=== PATIENT | female | born 1950 | race African-American/Black ===

== ENCOUNTER 2016-08-23 08:43 | Inpatient (IN) ==
[2016-08-23] MEDS ORDERED: DUONEB (A & A) INH ONE (09:17)
[2016-08-23] MEDS ORDERED: SOLU-MEDROL IV ONE (09:18)
[2016-08-23 09:39] LABS: MANUAL DIFF NEEDED? NO
[2016-08-23 09:43] LABS: BASO% 0.3 % (0.0-0.8); EOS# 0.02 X1000 (0.0-0.7); EOS% 0.3 % (0.0-10.0); HEMATOCRIT 35.7 % (37.0-47.0); HEMOGLOBIN 12.1 g/dL (12.0-16.0); LYMPH# 0.46 X1000 (1.2-3.4); LYMPH% 7.1 % (20.5-51.1); MCH 28.2 PG (27-31); MCHC 33.9 g/dL (33-37); MCV 83.2 FL (81-99); MONO# 0.57 X1000 (0.11-0.59); MONO% 8.9 % (1.7-9.3); MPV 10.5 FL (7.4-10.4); NEUT% 83.4 % (42.2-75.2); PLT 195 X1000 (130-400); RBC 4.29 XMIL (4.2-5.4)
[2016-08-23 09:50] LABS: INR 0.96; PROTIME 10.1 Seconds (9.2-11.7); PTT 28.2 Seconds (22.0-36.0)
[2016-08-23 10:00] LABS: AGAP 11; ALBUMIN 4.3 g/dL (3.5-5.0); ALKALINE PHOSPHATASE 83 U/L (32-104); BUN 12 mg/dL (8-22); CALCIUM 8.9 mg/dL (8.8-10.2); CHLORIDE 105 mmol/L (98-107); CK PROFILE 98 U/L (24-173); COSMO 286; GOT 17 U/L (10-30); GPT 11 U/L (10-36); MAGNESIUM 2.1 mg/dL (1.5-2.7); POTASSIUM 4.1 mmol/L (3.5-5.1); SODIUM 143 mmol/L (136-145); TCO2 27 mmol/L (25-35); TOTAL BILIRUBIN 0.15 mg/dL (0.20-1.00); TOTAL PROTEIN 6.4 g/dL (6.3-8.3)
--- NOTE | 2016-08-23 10:31 | Diag Imaging Result Document ---
PROCEDURE NAME: CHEST-PORTABLE - 08/23/2016 PORTABLE CHEST: FINDINGS: There is COPD particularly in the right upper lobe. There is a prominent left nipple shadow. The heart size and pulmonary vascularity are within normal limits and otherwise there has been no significant change in the appearance of the chest since 05/23/2015. IMPRESSION: COPD.
[2016-08-23] MEDS ORDERED: ROCEPHIN 1 GM/NS 1 GM/50 ML IVPB IV ONE (10:51)
[2016-08-23] MEDS ORDERED: ZITHROMAX 500 MG/NS 500 MG/250 ML IVPB IV ONE (10:52)
--- NOTE | 2016-08-23 11:05 | EKG Report ---
Test Performed on : 08/23/2016 08:57:03 AM Test Reason : Chest Pain Blood Pressure : / mmHG Vent. Rate : 082 BPM Atrial Rate : 082 BPM P-R Int : 144 ms QRS Dur : 082 ms QT Int : 368 ms P-R-T Axes : 037 046 031 degrees QTc Int : 429 ms Undetermined rhythm Nonspecific ST and T wave abnormality Abnormal ECG When compared with ECG of 30-MAY-2015 06:00, Current undetermined rhythm precludes rhythm comparison, needs review T wave inversion now evident in Anterior leads Unconfirmed Result
--- NOTE | 2016-08-23 11:16 | PROVIDER DOCUMENTATION ---
This chart was entered by Sebastien Purvis Scribe, acting as scribe for Tomas Muñoz MD. HPI-Respiratory General - General Chief Complaint: Shortness of Breath Stated Complaint: SOB Time Seen by Provider: 08/23/16 09:06 Source: patient Allergies/Adverse Reactions: Patient Allergies Allergy/AdvReac Type Severity Reaction Status Date / Time Penicillins Allergy Severe ANAPHYLAXIS Verified 05/23/15 16:45 Home Medications: Home Medication List Medication Instructions Recorded Confirmed Last Taken Type Albuterol Sulfate [Proair Hfa] 8.5 gm IH PRN PRN 06/19/12 08/23/16 08/22/16 07: 00 History 8.5 GM Acetaminophen [Tylenol] 650 mg PO Q6H PRN PRN #0 tablet 06/23/12 08/23/16 07:00 Rx 650 MG Albuterol [Albuterol Neb] 2.5 mg INH [id number] #0 neb 06/23/12 08/23/16 08/22/16 07:00 Rx 2.5 MG Bupropion S.r. [Wellbutrin Sr] 100 mg PO QAM 05/23/15 08/23/16 08/22/16 07:00 History 100 MG Fluticasone/Vilanterol [Breo 1 each IH QAM 05/23/15 08/23/16 08/22/16 07:00 History Ellipta 200-25 Mcg INH] 1 EACH Prednisone 10 mg PO QAM 05/23/15 08/23/16 08/22/16 07:00 History 10 MG Diltiazem C.d. [Cardizem Cd] 180 mg PO DAILY #0 capsule 05/30/15 08/23/16 07:00 Rx 180 MG Losartan [Cozaar] 100 mg PO DAILY #0 tablet 05/30/15 08/23/16 08/22/16 07:00 Rx 100 MG Tiotropium [place] Inhaler 1 puff INH RTDAILY #0 inhaler 05/30/15 08/23/1608/22 07:00 Rx [Spiriva] 1 PUFF - History of Present Illness-Resp Nature of Presenting Problem: patient is a 66 y/o F that presents to the ER with three days of progressive shortness of breath. patient reports for one week having sinus congestion and drainage. She denies fever/chills, edema, or chest pain. patient reports shortness of breath is now worse with exertion, laying flat, and coughing. History of COPD and still smokes daily Quality of Pain: reports: tightness Severity in ED: reports: moderate Onset/Duration: reports: gradual, 1 week ago Timing: reports: still present, getting worse (x 3 days) Context: denies: recent URI, out of meds Cough Quality/Degree: reports: moderate, productive cough Episode Frequency: chronic episodes Current Respiratory Medication Therapy: Initiated see nurses note Modifying Factors: worse with: exertion, lying down Associated Symptoms: reports: cough, nasal congestion, nasal drainage, shortness of breath, short of breath. denies: flu-like symptoms Similar Symptoms Previously?: Yes Recently seen or treated by another doctor?: No Review of Systems - Adult - REVIEW OF SYSTEMS - ADULT Constitutional: denies: chills, fever Eyes: reports: no symptoms reported Ears, Nose, Mouth & Throat: reports: sinus problem. denies: ear pain, throat pain, throat swelling Cardiovascular: reports: orthopnea. denies: chest pain, edema, palpitations, syncope Respiratory: reports: cough, dyspnea on exertion, shortness of breath, wheezing Gastrointestinal: denies: abdominal pain, nausea, vomiting Genitourinary: reports: no symptoms reported Musculoskeletal: denies: bone pain, back pain, joint pain, neck pain Integumentary: reports: no symptoms reported Neurological: reports: no symptoms reported Psychiatric: reports: no symptoms reported Endocrine: reports: no symptoms reported Hematologic/Lymphatic: reports: no symptoms reported Allergic/Immunologic: reports: no symptoms reported All Other Systems: Reviewed and Negative Past History - Adult - PAST MEDICAL HISTORY-ADULT Review of Records: reports: Old Records Reviewed, Nursing Assessment Review, Medications Reviewed Cardiovascular: reports: HTN Respiratory: reports: asthma, COPD - PRIOR SURGERIES/PROCEDURES Surgical/Procedure History: reports: hysterectomy, breast - IMMUNIZATION STATUS Childhood Immunizations: See Nurse Assessment Flu Vaccine: See Nurse Assessment - FAMILY HISTORY Family History: reviewed, not pertinent - SOCIAL HISTORY Smoking: cigarettes, less than 1 pack/day Living Situation: family Physical Exam-General - PHYSICAL EXAM-ADULT Initial Vital Signs Reviewed: Yes - CONSTITUTIONAL General Appearance: alert, mild distress - EYES Eyes: PERRL/EOMI, pink conjunctivae - HEAD, EARS, NOSE, MOUTH & THROAT HENMT: normocephalic/atraumatic, moist mucous membranes, normal ENT inspection - NECK Neck: full range of motion, normal inspection - RESPIRATORY Respiratory: no accessory muscle use, respiratory distress (mild), decreased breath sounds (at bases bilaterally), rhonchi (upper lobes), wheezing (upper lobes) - CARDIOVASCULAR Cardiovascular: regular rate, rhythm, no gallop, no murmur - GASTROINTESTINAL (ABDOMEN) Abdominal Exam: normal bowel sounds, non tender, soft - MUSCULOSKELETAL Extremity: normal range of motion, normal inspection - SKIN Integumentary: normal color, warm/dry - NEUROLOGIC Neurologic: grossly normal, no motor/sensory deficits - PSYCHIATRIC Psych/Mental Status: normal mood/affect, normal thought content, normal thought process, oriented x 3 Progress - PLAN OF CARE/RESULTS Progress/Plan/Lab Results: Vital Signs - 8 hr 08/23/16 08:48 08/23/16 10:07 08/23/16 10:43 Temperature 98.4 F Pulse Rate 82 82 75 Respiratory Rate 22 22 23 Blood Pressure 159/66 150/79 O2 Sat by Pulse Oximetry 88 L 95 98 08/23/16 10:44 Temperature 98.7 F Pulse Rate Respiratory Rate Blood Pressure O2 Sat by Pulse Oximetry Laboratory Results - last 24 hr 08/23/16 08/23/16 08/23/16 09:15 09:15 09:15 WBC 6.44 RBC 4.29 Hgb 12.1 Hct 35.7 L MCV 83.2 MCH 28.2 MCHC 33.9 RDW Std Deviation 14.6 H Plt Count 195 MPV 10.5 H Immature Gran % (Auto) 0.0 Neut % (Auto) 83.4 H Lymph % (Auto) 7.1 L [place] % (Auto) 8.9 Eos % (Auto) 0.3 Baso % (Auto) 0.3 Immature Gran # (Auto) 0.00 Neut # (Auto) 5.37 Lymph # (Auto) 0.46 L [place] # (Auto) 0.57 Eos # (Auto) 0.02 Baso # (Auto) 0.02 PT INR PTT (Actin FS) Sodium 143 Potassium 4.1 Chloride 105 Carbon Dioxide 27 Anion Gap 11 BUN 12 Creatinine 0.8 Estimated GFR/1.73 m2 > 60 BUN/Creatinine Ratio 15 Glucose 127 H Calculated Osmolality 286 Calcium 8.9 Magnesium 2.1 Total Bilirubin 0.15 L AST 17 ALT 11 Alkaline Phosphatase 83 Creatine Kinase 98 Troponin T Cjn-T-Rjzckavgkya Pept 112 Total Protein 6.4 Albumin 4.3 Globulin 2.1 Albumin/Globulin Ratio 2.0 Plasma Lactate 08/23/16 08/23/16 08/23/16 09:15 09:15 09:15 WBC RBC Hgb Hct MCV MCH MCHC RDW Std Deviation Plt Count MPV Immature Gran % (Auto) Neut % (Auto) Lymph % (Auto) [place] % (Auto) Eos % (Auto) Baso % (Auto) Immature Gran # (Auto) Neut # (Auto) Lymph # (Auto) [place] # (Auto) Eos # (Auto) Baso # (Auto) PT 10.1 INR 0.96 PTT (Actin FS) 28.2 Sodium Potassium Chloride Carbon Dioxide Anion Gap BUN Creatinine Estimated GFR/1.73 m2 BUN/Creatinine Ratio Glucose Calculated Osmolality Calcium Magnesium Total Bilirubin AST ALT Alkaline Phosphatase Creatine Kinase Troponin T < 0.010 Pln-T-Qofqeacjmnx Pept Total Protein Albumin Globulin Albumin/Globulin Ratio Plasma Lactate 0.6 Orders Category Date Time Status Cardiac Monitoring DIRECTED Care 08/23/16 09:15 Active Oxygen Therapy- ED Nursing DIRECTED Care 08/23/16 09:15 Active Saline Loc NOW Care 08/23/16 09:15 Active CHEST-PORTABLE [RAD] Stat Exams 08/23/16 09:16 Draft ABG [RESP] Routine Lab 08/23/16 09:59 Ordered BLOOD CULTURE [BLDCUL] Stat Lab 08/23/16 09:25 Results CBC WITH ELECTRONIC DIFF [HEME] Stat Lab 08/23/16 09:15 Completed CK PROFILE [SP CHEM] Stat Lab 08/23/16 09:15 Completed COMPREHENSIVE METABOLIC PANEL [CHEM] Stat Lab 08/23/16 09:15 Completed LACTATE, PLASMA [CHEM] Stat Lab 08/23/16 09:15 Completed MAGNESIUM [CHEM] Stat Lab 08/23/16 09:15 Completed PRO B-NATRIURETIC PEPTIDE Stat Lab 08/23/16 09:15 Completed PROTIME WITH INR [COAG] Stat Lab 08/23/16 09:15 Completed PTT [COAG] Stat Lab 08/23/16 09:15 Completed TROPONIN T Stat Lab 08/23/16 09:15 Completed Albuterol 2.5MG/Ipratrop 0.5MG [Duoneb (A & A)] Med 08/23/16 09:17 Discontinued 3 ml INH NOW ONE Azithromycin 500 mg/Ns [Zithromax 500 mg/Ns] Med 08/23/16 10:52 Active 500 mg in 250 ml IV NOW CefTRIAXONE 1 GM/NS [Rocephin 1 gm/Ns] Med 08/23/16 10:51 Active 1 gm in 50 ml IV NOW Methylprednisolone Sod Succ [Solu-Medrol] Med 08/23/16 09:18 Discontinued 125 mg IV NOW ONE Aerosol Treatments Routine Oth 08/23/16 09:17 Active Aerosol Treatments Stat Oth 08/23/16 09:17 Active EKG [EKG] Stat Ther 08/23/16 08:53 Ordered EKG [EKG] Stat Ther 08/23/16 09:15 Ordered 1050-hospitalist paged for admission Result Diagrams: 08/23/16 09:15 08/23/16 09:15 - REASSESSMENT Reassessment #1 Time Reassessed: 10:45 Status: improving Reassessment Comment: feeling better, but still wheezing - EKG 1 Time of EKG reading by physician:: 09:01 EKG Read and Signed by:: Tomas Muñoz EKG Interpretation (*Must complete 3 of following elements*): Abnormal Rate: 82 Rhythm: NSR [place]: normal QRS: normal ND Interval: normal ST Wave: non-specific ST changes - XRAY 1 XRAY Study: Chest Impression: Abnormal XRAY Interpretation: COPD - CONSULTS/PCP/HOSPITALIST Notification #1 *Consult/PCP/Hospitalist*: Time Discussed: 11:02 Reason/Comments: copd exacerbation Consult Disposition: Will see in ED, Admit Departure - Departure Time of Disposition Decision: 11:03 DIAGNOSIS: COPD exacerbation Dyspnea Qualifiers: Dyspnea type: shortness of breath Qualified Code(s): R06.02 - Shortness of breath Disposition: ADMITTED INPATIENT 09 Certified Medical Emergency: Emergent Condition: Stable Referrals and Follow-Ups: Davion Rg DO [Primary Care Provider] - - Critical Care Note Total Time (mins): 35 Critical Care Statement: This patient required my direct personal management to treat or rule out processes, the absence of which, could potentiallly result in sudden, clinically significant life or limb threatening deterioration. This chart was documented by the indicated scribe, (Sebastien Purvis, Scribe) and accurately reflects the services I performed and decisions made by me, Tomas Muñoz MD, as attested by the provider's signature.
[2016-08-23 11:40] LABS: ALLEN TEST YES; BE 2.3 mmoll (-3.0-3.0); BLOOD TYPE ARTERIAL; DRAW SITE R RADIAL; METHB 1.6 % (0.0-1.5); O2(CT) 14.6 mL/dL (15.0-23.0); PCO2(98.6) 49 mmHg (35-45); PO2(98.6) 59 mmHg (60-100); SAMPLE BLOOD; SAO2 94.2 % (95.0-100.0); THB 11.5 g/dL (11.5-17.4); pH(98.6) 7.37 (7.35-7.45)
[2016-08-23 11:41] LABS: MODALITY CANNULA
[2016-08-23] MEDS ORDERED: NS 1,000 ML IV SCH (12:14)
[2016-08-23] MEDS ORDERED: ZOFRAN IV PRN (12:14)
[2016-08-23] MEDS: ZITHROMAX 500 MG/NS 500 MG/250 ML IVPB IV SCH (12:15)
[2016-08-23] MEDS: SOLU-MEDROL IV SCH ×2 (13:54→22:16)
--- NOTE | 2016-08-23 15:04 | HISTORY AND PHYSICAL ---
PRIMARY CARE PHYSICIAN: Davion Rg DO CHIEF COMPLAIN: Two to three days of shortness of breath. HISTORY OF PRESENT ILLNESS: This is a 66-year-old, female with a history of COPD on home O2 as well as nebulizers who continues to smoke 5-6 cigarettes per day, hypertension, hyperlipidemia and mood disorder. Presented to the ED with 2-3 days of shortness of breath, subjective fever on Tuesday but no fever or chills. She states she does feel heaviness in her bilateral chest figueroa however no types of cardiac type pain. She states she normally does have dyspnea upon exertion. However it is now with very minimal or no exertion, she becomes very short of breath. She did complain of a cough. She stated today she has just started having somewhat of a productive cough with clear phlegm. In the ED, patient's chest x-ray, showed COPD and particularly in the right upper lobe. Heart size and pulmonary vascular within normal limits. CBC and CMP were unremarkable. The febrile on admission. Patient denied any cardiac type chest pain. No nausea, vomiting, diarrhea, bright or black tarry stools. No coffee-grounds emesis. No dizziness. Patient was noted to have expiratory wheezes. She was started on IV steroids as well as IV antibiotics and bronchodilators. Patient will be admitted to the medical telemetry floor. PAST MEDICAL HISTORY: 1. COPD with home O2. 2. Hypertension. 3. Hyperlipidemia. 4. Mood disorder. FAMILY HISTORY: Noncontributory. SOCIAL HISTORY: The patient does continue to smoke 5-6 cigarettes per day. Denies any alcohol or illicit drug use. Has several family members present at bedside very supportive. ALLERGIES: Penicillin which is anaphylaxis. HOME MEDICATIONS: 1. Breo Ellipta 225 mcg 1 each inhaled q.a.m. 2. Tylenol 650 mg p.o. p.r.n. 3. Albuterol 2.5 mg inhaled 4 times a day. 4. ProAir 8.5 g inhaled p.r.n. 5. Prednisone 10 mg p.o. q.a.m. 6. Wellbutrin 100 mg p.o. q.a.m. 7. Cardizem CD 180 mg p.o. daily. 8. Cozaar 100 mg p.o. daily. 9. Spiriva 1 puff inhaled RT daily. REVIEW OF SYSTEMS: Completely negative, except for those mentioned in the HPI. PHYSICAL EXAMINATION: VITAL SIGNS: Temperature is 98.7 degrees, heart rate 75, respirations 20, blood pressure is 150/79, O2 is 98% on 2 L nasal cannula. GENERAL: This is a 66-year-old, Afro-[place] female, who is sitting up in the bed in no acute distress. HEENT: Atraumatic. Normocephalic. PERRL. NECK: Supple, trachea midline. CV: No murmurs, gallops, or rubs are noted. RESPIRATORY: Bilateral expiratory wheezes. She does have marked decreased in breath sounds bilaterally. ABDOMEN: Soft, nontender, nondistended. Positive bowel sounds 4 quadrants. NEUROLOGIC: The patient is sitting up in bed. She is awake. She is alert. She is oriented. She moves all extremities. Cranial nerves 2-12 are grossly intact. EXTREMITIES: Negative for edema, 2+ pedal pulses bilaterally. LABORATORY DIAGNOSTIC DATA: White count 6, hemoglobin 12, hematocrit 35, platelet count is 193,000. Chemistry: Sodium 143, potassium 4.1, chloride 105, carbon dioxide 27, BUN 12, creatinine 0.8. Blood glucose was 127. lactate was 0.6, blood cultures are pending. Sputum culture has been ordered. ABG, pH 7.37, pCO2 49, PO2 59, bicarb 26.6, base excess 2.3 with oxyhemoglobin 90.1, O2 saturation was 94 on 2 L nasal cannula. Chest x-ray showed COPD. No change from prior in May 2015. ASSESSMENT AND PLAN: 1. Chronic obstructive pulmonary disease exacerbation. Patient is being admitted to the medical telemetry floor where she was continue on azithromycin as well as DuoNeb and IV steroids. Peak flow studies b.i.d., aggressive pulmonary toilet as well as supplemental O2. 2. Chronic compensated primary respiratory acidosis related to chronic obstructive pulmonary disease. See #1. 3. Hypertension. Continue home medications. 4. Mood disorder. Continue Wellbutrin. 5. Deep venous thrombosis prophylaxis. Patient will be put on compression hose. Further recommendations to follow physician evaluation as well as pending sputum and blood cultures. Dictated by LUPE Alvarado for Carson Power MD cc: DO Carson Torres MD
[2016-08-23] MEDS: DUONEB (A & A) INH SCH ×3 (15:32→23:05)
[2016-08-23] MEDS: TYLENOL PO PRN (16:00)
[2016-08-23] MEDS: PULMICORT INH SCH (19:20)
[2016-08-24] MEDS: DUONEB (A & A) INH SCH ×6 (03:30→23:05)
[2016-08-24] MEDS: SOLU-MEDROL IV SCH ×2 (06:51→18:29)
[2016-08-24] MEDS: PULMICORT INH SCH ×2 (07:37→19:15)
[2016-08-24] MEDS: SPIRIVA INH SCH (07:37)
[2016-08-24 07:40] LABS: AGAP 13; BUN 12 mg/dL (8-22); CALCIUM 9.2 mg/dL (8.8-10.2); CHLORIDE 105 mmol/L (98-107); COSMO 290; POTASSIUM 4.1 mmol/L (3.5-5.1); SODIUM 144 mmol/L (136-145); TCO2 26 mmol/L (25-35)
[2016-08-24 07:41] LABS: BASO% 0.1 % (0.0-0.8); HEMATOCRIT 35.3 % (37.0-47.0); HEMOGLOBIN 11.8 g/dL (12.0-16.0); IMM GRAN# 0.02 X1000 (0.0-0.04); IMM GRAN% 0.2 % (0.0-0.5); LYMPH# 0.46 X1000 (1.2-3.4); LYMPH% 5.1 % (20.5-51.1); MANUAL DIFF NEEDED? YES; MCH 28.1 PG (27-31); MCHC 33.4 g/dL (33-37); MONO# 0.32 X1000 (0.11-0.59); MONO% 3.6 % (1.7-9.3); MPV 11.1 FL (7.4-10.4); PLT 192 X1000 (130-400)
[2016-08-24 08:06] LABS: BANDS 10 % (0-1); LYMPHS 4 % (21-51); MONO 2 % (1-9)
[2016-08-24] MEDS: WELLBUTRIN SR PO SCH (09:00)
[2016-08-24] MEDS: CARDIZEM CD PO SCH (09:00)
[2016-08-24] MEDS: COZAAR PO SCH (09:00)
[2016-08-24] MEDS: DUONEB (A & A) INH PRN (09:36)
[2016-08-24] MEDS: ZITHROMAX 500 MG/NS 500 MG/250 ML IVPB IV SCH (11:50)
--- NOTE | 2016-08-24 13:54 | PROGRESS NOTE ---
DATE: 08/24/2016 SUBJECTIVE: Patient reported to still feeling short of breath. A little bit better in comparing with yesterday but is still wheezing. OBJECTIVE: Vital signs: Temp 98.8 degrees, heart rate 93, respiratory rate 28, blood pressure 154/67, O2 saturation 99% on 3 L nasal cannula. General Examination: This is a chronically ill- looking and frail, 66-year-old female lying in bed, in no acute distress. HEENT: Head is normocephalic, atraumatic. Anicteric sclerae and pale conjunctivae. Mucous membranes moist. Neck: Supple. No JVD noted. No carotid bruits. No lymphadenopathy. No thyromegaly. Cardiovascular: S1, S2 heard. Tachycardic. No murmurs, gallops, or rubs. Respiratory: Decreased breath sounds globally with marked wheezing in both pulmonary fischer. Patient is using some accessory muscles. Abdomen: Soft. Nontender to palpation. Bowel sounds present. No organomegaly. Extremities: No clubbing, cyanosis, or edema. Peripheral pulses present in both legs. Neurological: Patient is alert and oriented x3. Able to move 4 extremities. Cranial nerves 2 through 12 grossly normal. LABORATORY DATA: CBC is okay, as well as BMP with mild elevation of glucose of 159. ASSESSMENT AND PLAN: 1. Chronic obstructive pulmonary disease exacerbation. Patient is on DuoNeb every 4 hours scheduled plus bupropion and she is not improving as we were expecting. She is on long-acting beta-blockers at home so we have requested her to bring this medication to the hospital. Overall this patient is not improving as we excepted because she is still smoking 4-6 cigarettes per day and I think that is the reason why this patient is not improving. We are going to continue with basically the same management. The patient is strongly advised to stop smoking completely. She reports that she was on home oxygen a few months ago and I think she is going to be put back on that because it has been demonstrated that is the only thing that can improve survival in COPD patients. 2. Hypertension. Blood pressure is under control. We will continue with the same management. 3. Mood disorder. We will continue with Wellbutrin. cc: Arvind Weldon MD
[2016-08-24] MEDS: TYLENOL PO PRN ×2 (14:54→20:46)
[2016-08-24] MEDS: BREO ELLIPTA 100/25 MCG INH INH SCH (19:15)
[2016-08-24] MEDS: MYCOSTATIN SUSP PO SCH (20:46)
[2016-08-25] MEDS: DUONEB (A & A) INH SCH ×6 (04:42→22:56)
[2016-08-25] MEDS: SOLU-MEDROL IV SCH ×3 (05:17→21:18)
[2016-08-25] MEDS: SPIRIVA INH SCH (07:48)
--- NOTE | 2016-08-25 08:49 | Diag Imaging Result Document ---
PROCEDURE NAME: CHEST-PORTABLE - 08/25/2016 PORTABLE UPRIGHT CHEST: COMPARISON: 08/23/2016. FINDINGS: The lungs are well expanded. The heart is not enlarged. The vessels are not distended. No pneumonia. No pleural effusions identified. Mild scoliosis. There are emphysematous changes most notable in the apices. IMPRESSION: Emphysema.
[2016-08-25] MEDS: COZAAR PO SCH (09:23)
[2016-08-25] MEDS: CARDIZEM CD PO SCH (09:23)
[2016-08-25] MEDS: MYCOSTATIN SUSP PO SCH ×4 (09:24→21:19)
[2016-08-25] MEDS: WELLBUTRIN SR PO SCH (09:25)
[2016-08-25] MEDS: MUCINEX PO PRN (09:29)
[2016-08-25] MEDS: DUONEB (A & A) INH PRN ×2 (09:47→13:55)
[2016-08-25] MEDS: BREO ELLIPTA 100/25 MCG INH INH SCH (09:48)
[2016-08-25 09:50] LABS: BASO% 0.2 % (0.0-0.8); HEMATOCRIT 38.4 % (37.0-47.0); HEMOGLOBIN 12.6 g/dL (12.0-16.0); IMM GRAN# 0.07 X1000 (0.0-0.04); IMM GRAN% 0.4 % (0.0-0.5); LYMPH# 0.49 X1000 (1.2-3.4); LYMPH% 2.5 % (20.5-51.1); MANUAL DIFF NEEDED? YES; MCH 28.1 PG (27-31); MCHC 32.8 g/dL (33-37); MCV 85.7 FL (81-99); MONO# 0.79 X1000 (0.11-0.59); NEUT% 92.9 % (42.2-75.2); PLT 257 X1000 (130-400); RBC 4.48 XMIL (4.2-5.4)
[2016-08-25 10:04] LABS: AGAP 14; ALBUMIN 4.2 g/dL (3.5-5.0); ALKALINE PHOSPHATASE 77 U/L (32-104); BUN 16 mg/dL (8-22); CALCIUM 9.6 mg/dL (8.8-10.2); CHLORIDE 101 mmol/L (98-107); COSMO 295; GOT 29 U/L (10-30); GPT 17 U/L (10-36); POTASSIUM 4.4 mmol/L (3.5-5.1); SODIUM 145 mmol/L (136-145); TCO2 30 mmol/L (25-35); TOTAL BILIRUBIN 0.15 mg/dL (0.20-1.00); TOTAL PROTEIN 7.4 g/dL (6.3-8.3)
[2016-08-25 10:42] LABS: BANDS 3 % (0-1); LYMPHS 4 % (21-51); MONO 2 % (1-9)
[2016-08-25] MEDS: ZITHROMAX 500 MG/NS 500 MG/250 ML IVPB IV SCH (12:35)
--- NOTE | 2016-08-25 16:14 | PROGRESS NOTE ---
DATE: 08/25/2016 SUBJECTIVE: Patient reports feeling a little bit better today with less shortness of breath. Sitting in the chair. Denies any chest pain, any fever or chills. OBJECTIVE: Vital Signs: Temperature 98.5 degrees, heart rate 79, respiratory rate 28, blood pressure 170/75, O2 saturation 95% on 3 L nasal cannula. GENERAL EXAMINATION: This is a chronically ill-looking and frail, 66-year-old female lying in bed, in no acute distress.HEENT: Head is normocephalic, atraumatic. Anicteric sclerae and pale conjunctivae. Mucous membranes moist. Neck: Supple. No JVD noted. No carotid bruits. No lymphadenopathy. No thyromegaly. Cardiovascular: S1, S2 heard. No murmurs, gallops, or rubs. Regular rate and rhythm. Respiratory: Decreased breath sounds globally with mild wheezing in both pulmonary fischer but definitely better in comparing with yesterday. The patient is not using any accessory muscles or having work of breathing. Abdomen: Soft, nontender to palpation. Bowel sounds present. No organomegaly. Extremities: No clubbing, cyanosis, or edema. Peripheral pulses present in both legs. Neurological: Patient alert and oriented x3. Able to move 4 extremities. Cranial nerves 2-12 grossly normal. LABORATORY DATA: White cell count 19.63, hemoglobin 12.6, hematocrit 38.4, platelets 257,000. BMP completely unremarkable. ASSESSMENT AND PLAN: 1. Chronic obstructive pulmonary disease exacerbation. Patient is on DuoNeb every 4 hours scheduled and also she is receiving Spiriva and she was started on long-acting bronchodilator medication. The patient reports feeling clinically better. At this point, we are going to continue with the same management. Patient advised again to stop smoking because she is still smoking 4-6 cigarettes per day which of course is going to impact pulmonary function. Patient already advised of the consequence of keeping smoking. The patient was on home oxygen and I guess she will need to be on home oxygen upon discharge. We will continue with same management. 2. Hypertension. Blood pressure is under control. We will continue with same management. 3. Mood disorder, we will continue with Wellbutrin. cc: Arvind Weldon MD
[2016-08-25] MEDS ORDERED: LASIX IV ONE (20:20)
--- NOTE | 2016-08-25 21:17 | CONSULTATION ---
DATE OF CONSULTATION: 08/25/2016 REQUESTING PHYSICIAN: Arvind Weldon MD. REASON FOR CONSULTATION: Chronic obstructive pulmonary disease exacerbation. HISTORY OF PRESENT ILLNESS: Ms. Dorsey is a 66-year-old black female with ongoing tobacco history, chronic hypoxemic respiratory failure, who works in [employer]. 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 She has had difficulty with cat dander in the past. She had progressive shortness of breath and wheezing and presented to the emergency room. She denies fevers or chills. She has a cough which is nonproductive. PAST MEDICAL HISTORY/PROBLEM LIST: 1. COPD with chronic hypoxemic respiratory failure. 2. Hypertension. 3. Depression. 4. Dyslipidemia. SOCIAL HISTORY: She continues to work as per above. No alcohol use. Continued tobacco use. FAMILY HISTORY: Noncontributory to current presentation. REVIEW OF SYSTEMS: As noted in the HPI. PHYSICAL EXAMINATION: General: Reveals a thin black female with mild work of breathing, but in no overt distress. vital signs: Blood pressure 150/57, heart rate 86, respiration rate 20, oxygen saturation 99% on supplemental oxygen. HEENT: Pupils are equal and reactive. Oropharynx is clear. Neck: Supple. Chest: Reveals markedly diminished breath sounds bilaterally with diffuse wheezing. Cardiac: Distant heart sounds. Normal S1, normal S2. Abdomen: Soft without hepatosplenomegaly. Back: Reveals 1+ presacral edema. Extremities: Reveal trace edema. DIAGNOSTICS: Chest x-ray reveals hyperinflation on the portable chest film. Previous chest x- rays reveal increased AP diameter with flattening of the diaphragms. Arterial blood gas reveals pH 7.37, pCO2 of 49, PO2 of 59 on 2 L per nasal cannula. Microbiology: Blood cultures are negative. IMPRESSION: A 66-year-old with severe chronic obstructive pulmonary disease, chronic hypoxemic and chronic hypercapnic respiratory failure who presents with acute hypoxemic respiratory failure and chronic obstructive pulmonary disease exacerbation. Possible contributing factors include cat dander. RECOMMENDATIONS: 1. Agree with current antibiotic regimen. 2. Continue nebulizer regimen as you are doing. 3. Agree with coverage with atypical antibiotics. 4. Recommend increasing steroid dose. 5. Recommend smoking cessation. This was discussed at length. cc: Charly Villalba MD
[2016-08-25] MEDS: NORVASC PO SCH (21:19)
[2016-08-25] MEDS: TYLENOL PO PRN (21:50)
[2016-08-26] MEDS: DUONEB (A & A) INH SCH ×6 (03:37→23:15)
[2016-08-26] MEDS: TYLENOL PO PRN (03:56)
[2016-08-26] MEDS: SOLU-MEDROL IV SCH ×3 (03:56→21:29)
[2016-08-26 07:21] LABS: BASO% 0.2 % (0.0-0.8); HEMATOCRIT 35.5 % (37.0-47.0); HEMOGLOBIN 11.6 g/dL (12.0-16.0); IMM GRAN# 0.06 X1000 (0.0-0.04); IMM GRAN% 0.5 % (0.0-0.5); LYMPH# 0.57 X1000 (1.2-3.4); LYMPH% 4.5 % (20.5-51.1); MANUAL DIFF NEEDED? YES; MCH 27.9 PG (27-31); MCHC 32.7 g/dL (33-37); MCV 85.3 FL (81-99); MONO# 0.36 X1000 (0.11-0.59); MONO% 2.8 % (1.7-9.3); MPV 10.8 FL (7.4-10.4); PLT 211 X1000 (130-400); RBC 4.16 XMIL (4.2-5.4)
[2016-08-26] MEDS: SPIRIVA INH SCH (07:26)
[2016-08-26 07:40] LABS: BANDS 2 % (0-1); LYMPHS 6 % (21-51)
[2016-08-26] MEDS: MYCOSTATIN SUSP PO SCH ×3 (08:07→17:07)
[2016-08-26] MEDS: MUCINEX PO PRN ×2 (08:07→21:39)
[2016-08-26] MEDS: COZAAR PO SCH (08:07)
[2016-08-26] MEDS: CARDIZEM CD PO SCH (08:07)
[2016-08-26] MEDS: WELLBUTRIN SR PO SCH (08:07)
[2016-08-26] MEDS: NORVASC PO SCH ×2 (08:07→21:29)
[2016-08-26] MEDS: BREO ELLIPTA 100/25 MCG INH INH SCH (11:17)
[2016-08-26] MEDS: ZITHROMAX 500 MG/NS 500 MG/250 ML IVPB IV SCH (12:52)
--- NOTE | 2016-08-26 14:01 | PROGRESS NOTE ---
DATE: 08/26/2016 SUBJECTIVE: Patient reports she is still feeling short of breath and got short of breath when she tried to walk some. Denies any chest pain, fever, or chills. Denies any shortness of breath at rest. OBJECTIVE: Vital Signs: Temperature 98.4 degrees, heart rate 84, respiratory rate 26, blood pressure 169/74, O2 saturation 91% on 2 L nasal cannula. General Examination: This is a chronically ill-looking and frail, 66-year-old female lying in bed, in no acute distress. HEENT: Head is normocephalic, atraumatic. Anicteric sclerae. Pale conjunctivae. Mucous membranes moist. Neck: Supple. No JVD noted. No carotid bruits. No lymphadenopathy. No thyromegaly. Cardiovascular: S1, S2 heard. No murmurs, gallops, or rubs. Regular rate and rhythm. Respiratory: Decreased breath sounds globally. Mild wheezing in both pulmonary fischer, the same in comparing with yesterday. Patient is not using any accessory muscles or having work of breathing. Abdomen: Soft. Nontender to palpation. Bowel sounds present. No organomegaly. Extremities: No clubbing, cyanosis, or edema. Peripheral pulses present in both legs. Neurological: Patient alert and oriented x3. Able to move 4 extremities. Cranial nerves 2 through 12 grossly normal. LABORATORY DATA: White cell count is 12.77, hemoglobin 11.6, hematocrit 35.5, platelets 211,000. BMP not available today. ASSESSMENT AND PLAN: 1. Chronic obstructive pulmonary disease exacerbation. Patient is on DuoNeb every 4 hours. Receiving is Spiriva and also she is receiving Breo Ellipta and is still feeling short of breath, although better in comparing with admission. I think this patient has severe COPD. I do not know if she can benefit from starting Daliresp. In any case, we are going to continue with the same management. We have discussed with her at length the advantage of stopping smoking. We are going to continue basically with the same management. 2. Hypertension. Blood pressure is under control. We will continue with the same management. 3. Mood disorder. We will continue with Wellbutrin. cc: Arvind Weldon MD
[2016-08-26] MEDS ORDERED: AYR NASAL SPRAY NAS STA (21:37)
[2016-08-26 21:54] LABS: BE 14.1 mmoll (-3.0-3.0); BLOOD TYPE ARTERIAL; DRAW SITE R BRACHIAL; METHB 1.5 % (0.0-1.5); PO2(98.6) 67 mmHg (60-100); SAMPLE BLOOD; SAO2 97.5 % (95.0-100.0); THB 12.9 g/dL (11.5-17.4); pH(98.6) 7.42 (7.35-7.45)
[2016-08-26] MEDS: DUONEB (A & A) INH PRN (21:59)
[2016-08-26 22:06] LABS: MODALITY CANNULA; PCO2(98.6) 64 mmHg (35-45)
[2016-08-27] MEDS: MORPHINE IV PRN (00:19)
[2016-08-27] MEDS: DUONEB (A & A) INH SCH ×6 (03:33→23:04)
[2016-08-27] MEDS: MYCOSTATIN SUSP PO SCH ×5 (04:54→21:54)
[2016-08-27] MEDS: SOLU-MEDROL IV SCH ×3 (05:26→21:53)
[2016-08-27 06:56] LABS: BASO% 0.2 % (0.0-0.8); EOS# 0.01 X1000 (0.0-0.7); EOS% 0.1 % (0.0-10.0); HEMATOCRIT 38.3 % (37.0-47.0); HEMOGLOBIN 12.6 g/dL (12.0-16.0); IMM GRAN# 0.05 X1000 (0.0-0.04); IMM GRAN% 0.4 % (0.0-0.5); LYMPH# 0.63 X1000 (1.2-3.4); LYMPH% 4.7 % (20.5-51.1); MANUAL DIFF NEEDED? YES; MCH 27.7 PG (27-31); MCHC 32.9 g/dL (33-37); MCV 84.2 FL (81-99); MONO# 0.47 X1000 (0.11-0.59); MONO% 3.5 % (1.7-9.3); MPV 10.9 FL (7.4-10.4); NEUT% 91.1 % (42.2-75.2); PLT 237 X1000 (130-400); RBC 4.55 XMIL (4.2-5.4)
[2016-08-27 07:38] LABS: HYPOCHROM 1+; LYMPHS 8 % (21-51)
--- NOTE | 2016-08-27 07:52 | Diag Imaging Result Document ---
PROCEDURE NAME: CHEST-1 VIEW - 08/26/2016 ERECT AP PORTABLE CHEST AT 2135 HOURS: FINDINGS: There is some apical emphysematous change. There is no evidence of acute cardiac or pulmonary disease. When compared to 08/25/2016, there has been no significant change. IMPRESSION: COPD.
[2016-08-27] MEDS: SPIRIVA INH SCH (07:59)
[2016-08-27] MEDS: BREO ELLIPTA 100/25 MCG INH INH SCH (08:03)
[2016-08-27] MEDS: COZAAR PO SCH (09:42)
[2016-08-27] MEDS: NORVASC PO SCH ×2 (09:42→21:52)
[2016-08-27] MEDS: CARDIZEM CD PO SCH (09:42)
[2016-08-27] MEDS: WELLBUTRIN SR PO SCH (09:42)
[2016-08-27] MEDS: ZITHROMAX 500 MG/NS 500 MG/250 ML IVPB IV SCH (13:51)
--- NOTE | 2016-08-27 15:10 | PROGRESS NOTE ---
DATE: 08/27/2016 SUBJECTIVE: Patient reports feeling still short of breath although she reports that she is able up to go to the nurses station. She said after that she got really short of breath. Denies any fever or chills. OBJECTIVE: Vital Signs: Temperature 98.0 degrees, heart rate 86, respiratory rate 20, blood pressure 137/63, O2 saturation 96% on Venturi mask. General Examination: Is this is a chronically ill-looking and frail 66-year-old -[place] female lying in bed in no acute distress. HEENT: Head is normocephalic, atraumatic. Anicteric sclerae and pale conjunctivae. Mucous membranes moist. Neck: Supple. No JVD noted. No carotid bruits. No lymphadenopathy. No thyromegaly. Cardiovascular: S1, S2 heard. No murmurs, gallops or rubs. Regular rate and rhythm. Respiratory: Decreased breath sounds globally. Mild wheezing in both pulmonary fischer. The same in comparing with yesterday. Patient is not using any accessory muscles or having work of breathing. Abdomen: Soft, nontender to palpation. Bowel sounds present. No organomegaly. Extremities: No clubbing, cyanosis, or edema. Peripheral pulses present in both legs. Neurological: Patient is alert and oriented x3. Able to move 4 extremities. Cranial nerves 2-12 grossly normal. LABORATORY DATA: White cell count 13.35, hemoglobin 12.6, hematocrit 38.3, platelets 237,000. ASSESSMENT AND PLAN: 1. Chronic obstructive pulmonary disease exacerbation. Patient is on DuoNeb 4 hours +2 long- acting bronchodilators in this case is Spiriva and also Breo Ellipta but unfortunately still feeling short of breath. This is because of the most probably end-stage chronic obstructive pulmonary disease. There is no other medications we can add to her current treatment beside the Solu-Medrol 80 q.8 hours that she is receiving. Unfortunately this patient as we mentioned before continues to smoke not too many cigarettes but still smoking. The prognosis overall very poor so our plan is to keep her over the weekend and will see how she does on Tuesday so will discuss with her about placement. Pulmonary is also following this patient. 2. Hypertension. Blood pressure is under control. Will continue with the same management. 3. Mood disorder. Will continue with Wellbutrin. cc: Arvind Weldon MD
[2016-08-28] MEDS: DUONEB (A & A) INH SCH ×6 (03:36→22:40)
[2016-08-28] MEDS: SOLU-MEDROL IV SCH ×3 (05:57→21:40)
[2016-08-28 06:50] LABS: BASO% 0.1 % (0.0-0.8); HEMATOCRIT 34.5 % (37.0-47.0); HEMOGLOBIN 11.4 g/dL (12.0-16.0); IMM GRAN# 0.06 X1000 (0.0-0.04); IMM GRAN% 0.5 % (0.0-0.5); LYMPH# 0.44 X1000 (1.2-3.4); MANUAL DIFF NEEDED? YES; MCH 27.9 PG (27-31); MCV 84.4 FL (81-99); MONO# 0.36 X1000 (0.11-0.59); MONO% 3.2 % (1.7-9.3); MPV 10.8 FL (7.4-10.4); NEUT% 92.2 % (42.2-75.2); PLT 224 X1000 (130-400); RBC 4.09 XMIL (4.2-5.4)
[2016-08-28 07:13] LABS: LYMPHS 4 % (21-51); MONO 4 % (1-9)
[2016-08-28] MEDS: SPIRIVA INH SCH (08:10)
[2016-08-28] MEDS: CARDIZEM CD PO SCH (08:45)
[2016-08-28] MEDS: COZAAR PO SCH (08:45)
[2016-08-28] MEDS: NORVASC PO SCH ×3 (08:45→21:40)
[2016-08-28] MEDS: MYCOSTATIN SUSP PO SCH ×4 (08:46→21:45)
[2016-08-28] MEDS: WELLBUTRIN SR PO SCH (08:46)
[2016-08-28] MEDS: BREO ELLIPTA 100/25 MCG INH INH SCH (09:15)
[2016-08-28] MEDS: ZITHROMAX 500 MG/NS 500 MG/250 ML IVPB IV SCH (13:35)
--- NOTE | 2016-08-28 15:30 | PROGRESS NOTE ---
DATE: 08/28/2016 SUBJECTIVE: Patient reports still feeling short of breath. She had labored breathing according to nursing staff, even sitting in the chair. She reports that she is not definitely back to her baseline or even near to. OBJECTIVE: Vital Signs: Temperature 98.2 degrees, heart rate 87, respiratory rate 18, blood pressure 130/67, O2 saturation 97% on 4 L nasal cannula. General Examination: This is a chronically ill-looking and frail, 66-year-old female lying in bed, in no acute distress. HEENT: Head is normocephalic, atraumatic. Anicteric sclerae and pale conjunctivae. Mucous membranes moist. Neck: Supple. No JVD noted. No carotid bruits. No lymphadenopathy. No thyromegaly. Cardiovascular: S1, S2 heard. No murmurs, gallops, or rubs. Regular rate and rhythm. Respiratory: Mild wheezing in both pulmonary fischer. The same in comparing with previous day. Patient is not using any accessory muscles or having work of breathing. Abdomen: Soft, nontender to palpation. Bowel sounds present. No organomegaly. Extremities: No clubbing, cyanosis, or edema. Peripheral pulses present in both legs. Neurological: Patient is alert and oriented x3. Able to move 4 extremities. Cranial nerves 2-12 grossly normal. LABORATORY DATA: Reviewed. ASSESSMENT AND PLAN: 1. Chronic obstructive pulmonary disease exacerbation. Patient on all medications possible to treat COPD. Currently she is on DuoNeb every 4 hours as scheduled. On long acting bronchodilator Spiriva and Breo Ellipta but she is still the same. We did not find any sign of pneumonia in the CT so we are going to continue with the same treatment, but I think this is end-stage COPD, so we have talked with the patient and on Tuesday if she continues to stay the same we will probably need to talk about going home with hospice. We will see how this patient does. 2. Hypertension. Blood pressure is under control. 3. Mood disorder. Patient is on Wellbutrin and doing fine. cc: Arvind Weldon MD
[2016-08-28] MEDS: MORPHINE IV PRN (21:51)
[2016-08-29] MEDS: DUONEB (A & A) INH SCH ×7 (03:25→22:25)
[2016-08-29] MEDS: SOLU-MEDROL IV SCH ×3 (06:25→22:05)
[2016-08-29 07:22] LABS: HEMOGLOBIN 11.8 g/dL (12.0-16.0); IMM GRAN# 0.11 X1000 (0.0-0.04); IMM GRAN% 0.9 % (0.0-0.5); LYMPH# 0.41 X1000 (1.2-3.4); LYMPH% 3.5 % (20.5-51.1); MANUAL DIFF NEEDED? YES; MCH 28.4 PG (27-31); MCHC 33.7 g/dL (33-37); MCV 84.3 FL (81-99); MONO# 0.41 X1000 (0.11-0.59); MONO% 3.5 % (1.7-9.3); MPV 10.9 FL (7.4-10.4); NEUT% 92.1 % (42.2-75.2); PLT 213 X1000 (130-400); RBC 4.15 XMIL (4.2-5.4)
[2016-08-29 07:39] LABS: AGAP 5; BUN 26 mg/dL (8-22); CALCIUM 9.3 mg/dL (8.8-10.2); CHLORIDE 99 mmol/L (98-107); COSMO 296; POTASSIUM 4.3 mmol/L (3.5-5.1); SODIUM 144 mmol/L (136-145); TCO2 40 mmol/L (25-35)
[2016-08-29] MEDS: SPIRIVA INH SCH (08:00)
[2016-08-29] MEDS: BREO ELLIPTA 100/25 MCG INH INH SCH (08:00)
[2016-08-29 08:07] LABS: HYPOCHROM 1+; LYMPHS 6 % (21-51)
[2016-08-29] MEDS: CARDIZEM CD PO SCH (10:22)
[2016-08-29] MEDS: COZAAR PO SCH (10:22)
[2016-08-29] MEDS: WELLBUTRIN SR PO SCH (10:23)
[2016-08-29] MEDS: NORVASC PO SCH ×3 (10:23→22:05)
[2016-08-29] MEDS: MYCOSTATIN SUSP PO SCH ×3 (10:23→22:17)
--- NOTE | 2016-08-29 15:07 | PROGRESS NOTE ---
DATE: 08/29/2016 SUBJECTIVE: Patient reports breathing better. She reports that she is able to go to the bathroom without oxygen and she got mildly short of breath. OBJECTIVE: Vital Signs: Temperature 98.1 degrees, heart rate 77, respiratory rate 20, blood pressure 156/65, O2 saturation 96% on 2 L nasal cannula. General: This is a chronically ill- looking and frail, 66-year-old female lying in bed in no acute distress. HEENT: Head is normocephalic, atraumatic. Anicteric sclerae and pale conjunctivae. Mucous membranes moist. Neck: Supple. No JVD noted. No carotid bruits. No lymphadenopathy. No thyromegaly. Cardiovascular: S1, S2 heard. No murmurs, gallops, or rubs. Regular rate and rhythm. Respiratory: Mild wheezing in both pulmonary fischer, but better in comparing with previous days, and patient is not using any accessory muscles or having work of breathing. Abdomen: Soft, nontender to palpation. Bowel sounds present. No organomegaly. Extremities: No clubbing, cyanosis, or edema. Peripheral pulses present in both legs. Neurological: Patient is alert and oriented x3. Able to move 4 extremities. Cranial nerves 2-12 grossly normal. Gait normal. LABORATORY DATA: Reviewed. ASSESSMENT AND PLAN: 1. Chronic obstructive pulmonary disease exacerbation. Patient today was trying to walk around and she is able to do that with oxygen so she was advised to continue doing that. Currently she is on DuoNeb every 4 hours as well as Spiriva and Breo Ellipta and she is finally feeling better. I think if she continues doing like this, requiring just 2 L of oxygen by nasal cannula, she will be able to go home. She reports that she does not need to go to rehab facility because she had some resources at home to continue doing exercise at home. 2. Hypertension, blood pressure is under control. We will continue with same management. 3. Mood disorder. Patient also Wellbutrin, and we will continue with the same because patient is doing fine. cc: Arvind Weldon MD
[2016-08-29] MEDS: ZITHROMAX 500 MG/NS 500 MG/250 ML IVPB IV SCH (16:35)
[2016-08-30] MEDS: DUONEB (A & A) INH SCH ×6 (03:20→23:08)
[2016-08-30] MEDS: SOLU-MEDROL IV SCH ×3 (05:51→23:36)
[2016-08-30 06:36] LABS: BASO% 0.1 % (0.0-0.8); HEMATOCRIT 34.6 % (37.0-47.0); HEMOGLOBIN 11.6 g/dL (12.0-16.0); IMM GRAN# 0.21 X1000 (0.0-0.04); IMM GRAN% 1.8 % (0.0-0.5); LYMPH# 0.42 X1000 (1.2-3.4); LYMPH% 3.5 % (20.5-51.1); MANUAL DIFF NEEDED? YES; MCH 28.4 PG (27-31); MCHC 33.5 g/dL (33-37); MCV 84.6 FL (81-99); MONO# 0.46 X1000 (0.11-0.59); MONO% 3.8 % (1.7-9.3); MPV 10.8 FL (7.4-10.4); NEUT% 90.8 % (42.2-75.2); PLT 233 X1000 (130-400); RBC 4.09 XMIL (4.2-5.4)
[2016-08-30 07:08] LABS: BANDS 4 % (0-1); HYPOCHROM 1+; LYMPHS 6 % (21-51)
[2016-08-30] MEDS: BREO ELLIPTA 100/25 MCG INH INH SCH (07:55)
[2016-08-30] MEDS: SPIRIVA INH SCH (07:56)
[2016-08-30] MEDS: NORVASC PO SCH ×2 (09:34→20:01)
[2016-08-30] MEDS: CARDIZEM CD PO SCH (09:35)
[2016-08-30] MEDS: COZAAR PO SCH (09:35)
[2016-08-30] MEDS: WELLBUTRIN SR PO SCH (09:35)
[2016-08-30] MEDS: MYCOSTATIN SUSP PO SCH ×4 (09:36→20:00)
[2016-08-30] MEDS: ZITHROMAX 500 MG/NS 500 MG/250 ML IVPB IV SCH (15:04)
--- NOTE | 2016-08-30 16:00 | PROGRESS NOTE ---
DATE: 08/30/2016 SUBJECTIVE: Patient reports feeling better. She was able to walk around with a walker and she was desaturating to lows to highs 80s so from 2 L that she was while she was resting we went up to 4 L and then 3 L. Denies any fever or chills. OBJECTIVE: Vital Signs: Temperature 98.2 degrees, heart rate 88, respiratory rate 19, blood pressure 155/57, O2 saturation 99% 3 L nasal cannula. General Examination: This is a chronically ill-looking frail 66-year-old female lying in bed in no acute distress. HEENT: Head is normocephalic, atraumatic. Anicteric sclerae and pale conjunctivae. Mucous membranes moist. Neck: Supple. No JVD noted. No carotid bruits. No lymphadenopathy. No thyromegaly. Cardiovascular: S1, S2 heard. No murmurs, gallops, or rubs. Regular rate and rhythm. Respiratory: There is decreased breath sounds globally with mild wheezing still present in both pulmonary fischer but definitely much better in comparing with previous days. Patient is not using any accessory muscles or having work of breathing. Abdomen: Soft, nontender to palpation. Bowel sounds present. No organomegaly. Extremities: No clubbing, cyanosis, or edema. Peripheral pulses present in both legs. Neurological: Patient is alert and oriented x3. Able to move 4 extremities. Cranial nerves 2-12 grossly normal. LABORATORY DATA: White cell count 11.96, hemoglobin 11.6, hematocrit 34.6, platelets 233,000 and BMP from yesterday is okay, there is no BMP from today. ASSESSMENT AND PLAN: 1. Chronic obstructive pulmonary disease exacerbation. Patient was trying to walk around yesterday and she was doing definitely much better than previous day. She was using oxygen 2 L/minute, when she walked the O2 saturation drops so she needs up to 4 L of oxygen to get comfortable so was talking with the patient today and she reports that she wants to stay 1 more day and see how she does so she can go home because she reports that she is not back to her baseline. I think she will not be able to be completely back to her baseline before coming to the hospital but at least during all those days patient is definitely doing much better. In any case, we prefer to keep her 1 more day and will check if she is still requiring 2 L of oxygen and if she is able to work with physical therapy I guess we can set up home health services for her at home and she can be discharged tomorrow. 2. Hypertension. Blood pressure is under control. 3. Mood disorder. Patient in on Wellbutrin. Will continue with the same management. cc: Arvind Weldon MD
[2016-08-31] MEDS: DUONEB (A & A) INH SCH ×6 (04:09→23:15)
[2016-08-31] MEDS: SOLU-MEDROL IV SCH ×2 (06:25→14:50)
[2016-08-31 06:45] LABS: BASO% 0.1 % (0.0-0.8); HEMATOCRIT 35.7 % (37.0-47.0); IMM GRAN# 0.41 X1000 (0.0-0.04); IMM GRAN% 2.8 % (0.0-0.5); LYMPH# 0.44 X1000 (1.2-3.4); MANUAL DIFF NEEDED? YES; MCH 28.2 PG (27-31); MCHC 33.6 g/dL (33-37); MCV 83.8 FL (81-99); MONO# 0.54 X1000 (0.11-0.59); MONO% 3.7 % (1.7-9.3); MPV 10.5 FL (7.4-10.4); NEUT% 90.4 % (42.2-75.2); PLT 260 X1000 (130-400); RBC 4.26 XMIL (4.2-5.4)
[2016-08-31 07:15] LABS: LYMPHS 5 % (21-51)
[2016-08-31] MEDS: BREO ELLIPTA 100/25 MCG INH INH SCH (08:00)
[2016-08-31] MEDS: SPIRIVA INH SCH (08:02)
[2016-08-31] MEDS: CARDIZEM CD PO SCH (09:22)
[2016-08-31] MEDS: MYCOSTATIN SUSP PO SCH ×5 (09:22→20:00)
[2016-08-31] MEDS: NORVASC PO SCH ×2 (09:23→20:00)
[2016-08-31] MEDS: WELLBUTRIN SR PO SCH (09:23)
[2016-08-31] MEDS: COZAAR PO SCH (09:23)
[2016-08-31] MEDS: ZITHROMAX 500 MG/NS 500 MG/250 ML IVPB IV SCH (14:50)
--- NOTE | 2016-08-31 18:35 | PROGRESS NOTE ---
DATE: 08/31/2016 SUBJECTIVE: This patient states that she is feeling better, family members at the bedside. We will continue with the same treatment for 1 more day. We will switch the Solu-Medrol to prednisone. OBJECTIVE: Vital signs: Temperature 98.5 degrees, pulse 89, respiratory rate 20, blood pressure 131/51, oxygen saturation 98% on nasal cannula 2-3 L. HEENT: Head normocephalic. No trauma. PERRLA. Neck: Supple. No JVD. No masses. Central trachea. Cardiovascular: Regular rhythm and rate. No murmurs. Chest: Clear to auscultation. Mild rhonchi scattered bilaterally, mostly at the bases. No wheezing. No rales. Abdomen: Soft, nontender, nondistended. No hepatosplenomegaly. Extremities: No edema. No clubbing. No cyanosis. Neurological: The patient is alert and oriented x3. No focal neurological deficits. LABORATORY: WBC 14.5, hemoglobin 12, hematocrit 35.7, platelets 260,000. ASSESSMENT AND PLAN: 1. Chronic obstructive pulmonary disease exacerbation. This patient is getting better. The plan is to switch the steroids from intravenous to p.o., continue 1 more day with treatment and discharge this patient home with home O2. We will continue to monitor. 2. Hypertension. The blood pressure is under control. 3. Mood disorder. Patient is on Wellbutrin. We will continue with the same management. cc: Mayo Collier MD
[2016-09-01] MEDS: DUONEB (A & A) INH SCH ×3 (02:40→11:22)
[2016-09-01] MEDS: SPIRIVA INH SCH (07:49)
[2016-09-01 07:51] LABS: BASO% 0.1 % (0.0-0.8); HEMATOCRIT 38.3 % (37.0-47.0); HEMOGLOBIN 12.8 g/dL (12.0-16.0); IMM GRAN# 0.64 X1000 (0.0-0.04); IMM GRAN% 2.9 % (0.0-0.5); LYMPH# 0.67 X1000 (1.2-3.4); MANUAL DIFF NEEDED? YES; MCH 27.8 PG (27-31); MCHC 33.4 g/dL (33-37); MCV 83.1 FL (81-99); MONO# 1.26 X1000 (0.11-0.59); MONO% 5.7 % (1.7-9.3); NEUT% 88.3 % (42.2-75.2); PLT 326 X1000 (130-400); RBC 4.61 XMIL (4.2-5.4)
[2016-09-01 08:23] LABS: BANDS 2 % (0-1); HYPOCHROM 1+; LYMPHS 3 % (21-51); MONO 5 % (1-9)
[2016-09-01 08:27] LABS: AGAP 11; BUN 29 mg/dL (8-22); CALCIUM 9.6 mg/dL (8.8-10.2); CHLORIDE 97 mmol/L (98-107); COSMO 295; POTASSIUM 4.5 mmol/L (3.5-5.1); SODIUM 141 mmol/L (136-145); TCO2 33 mmol/L (25-35)
[2016-09-01 08:31] VITALS: BP 148/54
[2016-09-01] MEDS: NORVASC PO SCH (08:46)
[2016-09-01] MEDS: CARDIZEM CD PO SCH (08:47)
[2016-09-01] MEDS: WELLBUTRIN SR PO SCH (08:47)
[2016-09-01] MEDS: MYCOSTATIN SUSP PO SCH ×2 (08:48→13:57)
[2016-09-01] MEDS: COZAAR PO SCH (08:48)
[2016-09-01] MEDS ORDERED: PREDNISONE PO SCH (09:00)
[2016-09-01] MEDS: BREO ELLIPTA 100/25 MCG INH INH SCH (11:23)
[2016-09-02] MEDS ORDERED: PREDNISONE PO SCH (09:00)
--- NOTE | 2016-09-02 13:28 | DISCHARGE SUMMARY ---
ADMISSION DATE: 08/23/2016 DISCHARGE DATE: 09/01/2016 CONSULTATION: Dr. Charly Villalba of pulmonology. PERTINENT PROCEDURES: Initial chest x-ray showed COPD. DISCHARGE DIAGNOSES: 1. Chronic obstructive pulmonary disease exacerbation. Patient is being discharged back home with [facility] and her home oxygen. 2. Hypertension, stable. 3. Mood disorder. Continue Wellbutrin. HOSPITAL COURSE: Briefly, Ms. Dorsey is a 58-year-old, female with a history of COPD on home O2 as well as nebulizers, who continues to smoke 5-6 cigarettes per day, hypertension, hyperlipidemia and mood disorder. She presented to the ED with 2-3 days of shortness of breath, subjective fever, but no chills. She stated she normally does have dyspnea upon exertion. However, it is now very minimal or no exertion. She becomes very short of breath. She did complain of a nonproductive cough. In the ED her chest x-ray showed COPD, particularly in the right upper lobe. CBC and CMP were unremarkable. Patient was admitted for COPD exacerbation, started on azithromycin, as well as bronchodilators and IV steroids, peak flow studies b.i.d., and aggressive pulmonary toilet and supplemental O2. Dr. Villalba of pulmonology was consulted. He recommended smoking cessation; that was discussed at length, increasing steroids and covering with atypical antibiotics. Dr. Villalba was consulted because the patient was not showing much improvement. The patient spent many days complaining of the feeling of still being short of breath. She was able to get up and ambulate. Clinically, the patient slowly improved. She was able to get up out of her bed, take her oxygen off and walk to the bathroom. The patient did begin to feel better. However, when she was ambulating in the hallway with her walker, she would desaturate into the high 80s while walking around on 2 L nasal cannula. After she rested and increased her oxygen up to 4 L, her oxygen level would come up. The patient's main complaint was that she was still not back to her baseline when she came into the hospital. However, despite many discussions about smoking cessation, we feel that the patient does not feel that she needs to quit and that she will go home and continue smoking. We feel that she will not be completely back to her baseline before coming to the hospital because her COPD is progressing. Patient has been made aware of that as she has had smoking cessation education daily. She feels she can go back home today with her home health and her supplemental O2. VITAL SIGNS AT TIME OF DISCHARGE: Temperature is 98.2 degrees, heart rate 95, respirations 20, blood pressure 148/54, and O2 is 98% on 3 L. DISCHARGE MEDICATIONS: 1. Tylenol 650 mg p.o. q. 6 hours p.r.n. 2. ProAir 8.5 g inhaled p.r.n. 3. Norvasc 5 mg p.o. b.i.d. 4. Wellbutrin SR 100 mg p.o. q.a.m. 5. Cardizem CD 180 mg p.o. daily. 6. Breo Ellipta 1 puff inhaled q.a.m. 7. Mucinex 600 mg p.o. q. 12 hours. 8. Cozaar 100 mg p.o. daily. 9. Prednisone 40 mg p.o. q.a.m. 10. Spiriva 1 puff inhaled RT daily. FOLLOW UP: The patient is being discharged home with [facility], as well as her supplemental O2. She has been advised against smoking. She has had daily smoking cessation education, as well as education on the means to quit. Patient will follow up with her primary care physician, Dr. Davion Rg in 1 week, and follow up with Dr. Villalba in 2 weeks. The patient can return to the ED for any worsening of symptoms. DISCHARGE TIME: 30 minutes. Dictated by LUPE Alvarado for Mayo Collier MD cc: MD Davion Finley DO
== END 2016-09-01 15:20 | disposition home health service (06) ==
LOC: ED 08:43 → SUATTDRO 13:59 → 3N 13:59
PROVIDERS: ATTEND Internal Medicine